=== PATIENT | female | born 1965 | race Caucasian/White ===

== ENCOUNTER 2019-11-27 10:04 | Outpatient (CLI) | payer BC ==
--- NOTE | 2019-11-27 12:03 | ULT ---
SONOGRAM RIGHT BREAST: Date: 11/27/2019 HISTORY: Palpable mass right breast. FINDINGS: Correlated with diagnostic mammography performed on the same date. At the 7 o'clock position of the right breast, in the region of palpable concern, densely calcified b reast implant is apparent. Immediately superficial to the breast implant and deep to the skin surface is a well circumscribed, slightly heterogeneous, hypoechoic oval mass that is 1.1 cm length x 0.9 cm width x 0.7 cm depth. It shows subtle posterior acoustic enhancement. This lesion was not visible on mammogram, likely due to the densely calcified breast implant obscuring it. The patient has a history of excisional biopsies of benign lesions of the right breast. IMPRESSION: While there are many characteristics of the palpable right breast mass at the 7 o'clock position that suggests a benign process, the fact that it is new/enlarging and is a solid mass, is of concern. BIRADS Category 4 - Suspicious findings. Tissue sampling is warranted. Given the position of the mass in relation to the skin and breast implants, image-guided biopsy would not be safe. Please consider surgical consultation and evaluation for potential excision. Findings were called to Mary, at the office of Dr. Ryder, at the time of the exam. CODE CR. POS: [facility]
--- NOTE | 2019-11-28 10:12 | MMO ---
Bilateral MAMMO Bilat Diag [facility]. CLINICAL HISTORY: Patient is 54 years old and is seen for diagnostic exam. The patient has a history of right needle biopsy in 2015 - benign - INCONCLUSIVE RESULT and bilateral Implants at age 33 - benign. VIEWS: The views performed were: . FILMS COMPARED: The present examination has been compared to prior imaging studies performed at [facility] on 05/22/2015, 02/01/2017 and 11/27/2019. This study has been interpreted with the assistance of computer-aided detection. MAMMOGRAM FINDINGS: There are scattered fibroglandular densities. Finding 1: There are stable calcified implants seen in both breasts. Finding 2: In the area of palpable concern at the 7 oclock position Right breast, no masses are seen mammographically. But a solid mass is visible by sonogram. Finding 3: There are stable benign appearing calcifications seen in both breasts. IMPRESSION: FINDING 1: IMPLANT FINDINGS IN BOTH BREASTS ARE BENIGN. FINDING 2: FINDING IN THE RIGHT BREAST IS SUSPICIOUS. BIOPSY IS RECOMMENDED. FINDING 3: STABLE CALCIFICATIONS IN BOTH BREASTS ARE BENIGN. THE RESULTS OF THIS EXAM WERE SENT TO THE PATIENT. ACR BI-RADS Category 4 - Suspicious abnormality - biopsy should be considered MAMMOGRAPHY NOTE: 1. A negative mammogram report should not delay a biopsy if a dominant of clinically suspicious mass is present. 2. Approximately 10% to 15% of breast cancers are not detected by mammography. 3. Adenosis and dense breasts may obscure an underlying neoplasm. Reported by: CHARU CLEMENTE MD Electonically Signed: [id number]
== END 2019-11-27 10:05 | disposition home or self-care (01) ==
LOC: BICMAMMO 10:04
PROVIDERS: ATTEND Nurse Practitioner Family
DX: N63.13 Unspecified lump in the right breast, lower outer quadrant (principal); R92.1 Mammographic calcification found on diagnostic imaging of breast; Z98.82 Breast implant status
CPT/HCPCS: 77066; G0279